=== PATIENT | male | born 1995 | race Caucasian/White ===

== ENCOUNTER → 2017-07-18 | Outpatient (CLI) | payer OTHER ==
--- NOTE | 2017-07-19 06:28 | PAP/PSG TECHNICIAN REPORT ---
[facility] [employer] Power [employer] Manager Polysomnogram Report Study name: None Report date: 07/19/2017 Study date: 07/18/2017 Referring Physician: DR. MAYNARD Name: CINDI BANDA Interpreting Physician: Mihai Maynard M.D. Date of : 1995 [employer] Power Plant Manager: Ritesh Valdivia RPSGT. Sex: Male Age: 22 StudyType: PSG Weight: 167.5 lbs 15 inches Height: 22 years, Height 5' 9" Neck Circum: BMI: 24.73 Medications: MELATONIN 5 MG, ZOLOFT 25 MG Patient History PATIENT HAS HISTORY OF INSOMNIA AND SNORING. HE GENERALLY FEELS TIRED DURING THE DAY BUT IS UNABLE TO TAKE NAPS. HE IS HERE TODAY FOR AN EVALUATION OF SAHARA. ESS = 1 RM 8 Parameters Monitored NPSG: E1-M2, E2-M1, Fp1-M2, Fp2-M1, F3-M2, F4-M2, F4-M1, C3-M2, C4-M2, C4-M1, O1-M2, O2-M2, O2-M1, T3-M2, T4-M1, P3-M2, P4-M1, CHIN1, CHIN2, HR, EKG, Legs, PFLOW, SNOR, FLOW, CFLOW, Tidal Volume, THOR, ABDO, SpO2, PLTH, CPRESS, ETCO2 Wave, ETCO2, pH Sleep Architecture Sleep Stages Time at Lights Off 10:28:29 PM STAGES Time (min.) TST (%) Time at Lights On 5:50:29 AM Wake 67.5 -- Total Recording Time (TRT) 442.50 min. N1 15.0 4 Total Sleep Period (TSP) 430.0 min. N2 182.0 49 Total Sleep Time (TST) 374.5min. N3 63.0 17 Awake Time 67.5 min. REM 114.5 31 Wake after Sleep Onset 55.5 min. Sleep Efficiency (SE) 85 % Sleep Onset Latency (DRE) 12.0 min. Number of Stage 1 Shifts None Awakenings 17 Stage Changes 62 Number of REM periods 5 REM 114.5 31 REM Latency 72.0 min. NREM 260.0 69 Body Position Analysis Supine Right Left Side Prone Vertical Total Sleep Time (min.) 112.3 57.0 230.0 287.01 0.0 0.0 Total Sleep Time (%) 23% 15% 61% 77 0% N/A% Total Sleep Time REM (min.) 12.3 0.0 102.2 None 0.0 0.0 Total Sleep Time NREM (min.) 75.2 57.0 127.8 None 0.0 0.0 Intermittent Wake (min.) 24.8 28.5 14.2 None 0.0 0.0 Total Sleep Period (%) 26% None None None None None Arousals Myoclonus (PLM) * Events Count Index Events Count Index Spontaneous 22 4 Events Awake (PLMW) 115 102.2 Respiratory 1 0.2 Events Asleep w/ Arousal (PLMA) 3 0.5 PLM 3 0 Events Asleep w/o Arousal (PLMS) 123 19.7 Snoring 2 0 Total Asleep 126 20.2 Total 28 4 Total 241 33 Respiratory Analysis * CA OA MA CH H RERA Total Count 2 0 0 0 1 0 3 Index 0.3 0.0 0.0 0 0.2 0 0.5 Mean Duration 13.4 0.0 0.0 0.00 19.5 0.0 15.5 Longest Duration 13.4 0.0 0.0 0.00 0.0 0.0 19.5 Respiratory Event Summary Total Supine ~Supine Right Left Prone REM NREM Apneas Count 2 0 2 0 2 N/A 2 0 Index 0.3 0 0 0.0 0.5 N/A 1 0 Hypopneas (4% Desat) Count 1 1 0 0 0 N/A 0 1 Index 0.2 0.7 0 0.0 0.0 N/A 0.0 0.2 Apneas & All Hypopneas Count 3 1 2 0 2 N/A 2 1 Index 0.5 1 0 0 1 N/A 1.0 0.2 Respiratory Events (Director Diversity+All Hyp+RERA) Count 3 1 2 0 2 N/A 2 1 Index 0.5 1 0 0.0 0.5 N/A 1.0 0.2 Respiratory Related Arousal Count 1 1 0 0 0 N/A 0 1 Index 0.2 1 0 0 0 N/A 0 0 Snoring Analysis Supine Right Left Prone REM NREM Total Snore duration 0.7 min Snores count 13 1 5 N/A 5 14 19 Snore mean duration 2.1 Sec Snores index 9 1 1 N/A 2.6 3.2 3.0 TST with snoring (%) 0.2% Desaturation Event Summary: Minimum %SpO2 Event Count Mean/Min/Max Duration(sec.) Desaturation Index % Time In Bed > 90 10 22.1 / 5.3 / 49.3 1.4 98.9 86 - 90 0 N/A 0.0 1.1 81 - 85 0 N/A 0.0 0.0 76 - 80 0 N/A 0.0 0.0 71 - 75 0 N/A 0.0 0.0 66 - 70 0 N/A 0.0 0.0 61 - 65 0 N/A 0.0 0.0 56 - 60 0 N/A 0.0 0.0 51 - 55 0 N/A 0.0 0.0 < 50 0 N/A 0.0 0.0 Total REM NREM Awake <50% 0.0 min. 0.0 min. 0.0 min. 0.0 min. 51 - 60% 0.0 min. 0.0 min. 0.0 min. 0.0 min. 61 - 70% 0.0 min. 0.0 min. 0.0 min. 0.0 min. 71 - 80% 0.0 min. 0.0 min. 0.0 min. 0.0 min. 81 - 90% 4.6 min. 1.2 min. 2.5 min. 0.9 min. 91 - 100% 414.9 min. 112.7 min. 253.1 min. 49.1 min. Average 93 93 93 93 Minimum SpO2 84 90 89 84 Desaturation Event Index 1.4 0.0 0.0 8.9 # Desat. Events below 89% 3 N/A N/A 3 Time(%) with Saturation below 89% 0.1 0.0 0.0 0.1 Time(min.) with Saturation below 89% 0.2 0.0 0.0 0.2 Time (mins) REM (mins) NREM (mins) % of TST SpO2 Below 90% N/A N/A NN/A 0.1 SpO2 Below 88% 0 0 0 0 Heart Rate Analysis Min (bpm) Max (bpm) Average (bpm) Awake 38 250 62 NREM 44 127 52 REM 45 76 56 Overall 44 127 53 Supplemental O2 Values Minimum O2 level: None Value Start Time End Time [employer] Manager Comments Mr. Hanks slept in the right, left and supine positions. No cardiac arrhythmia noted. Leg movements noted. No bruxism noted. Snoring was noted and scored as a 1 on a scale of 1 through 5. (0=no snoring, 5=snoring loud enough to be heard through a closed door or down the lamar way) Mr. Hanks awoke to use the restroom 1 time during the night. Mr. Hanks stated I did not sleep as well as I do when I am in my own bed. The final report will be interpreted and signed by a sleep physician. The completed physician report will then be placed in the patient medical record. Therapy (cm H2O) 0 TIB (min.) 442.0 TST (min.) 374.5 Sleep Onset (min.) 12.0 REM Onset From Sleep (min.) 72.0 Sleep Efficiency % 85 Wakefulness (%) 15 Wakefulness (min.) 67.5 NREM 1 (%) 4 NREM 1 (min.) 15.0 NREM 2 (%) 49 NREM 2 (min.) 182.0 NREM 3 (%) 17 NREM 3 (min.) 63.0 REM (%) 31 REM (min.) 114.5 # Arousals 28 Arousal Index 4 # Snore 19 Snore Index 3.0 AHI 0.5 AHI Supine 1 AHI Non-Supine 0 NREM AHI 0.2 REM AHI 1.0 RDI 0.5 # Obstructive Apnea 0 # Central Apnea 2 # Mixed Apnea 0 # Hypopneas 1 RERAs 0 Total Respiratory Events 3 Time Below SpO2 89% (min.) 0.0 Mean NREM SpO2 (%) 93 Mean REM SpO2 (%) 93 Mean Sleep SpO2 (%) 93 Min NREM SpO2 (%) 89 Min REM SpO2 (%) 90 Position Supine (min.) 112.3 Position Non-supine (min.) 287.0 LM Index Sleep 20.2 LM Index NREM 18.0 LM Index REM 25.2 Mean Heart Rate (bpm) 53 Min Heart Rate (bpm) 44
--- NOTE | 2017-07-20 16:40 | POLYSOMNOGRAPH REPORT ---
CLINICAL DATA: 22-year-old male with BMI of 24.73 referred by myself and his health educator, for evaluation of possible nocturnal hypoxemia and sleep apnea as a cause for polycythemia. He does have insomnia and snoring. He is tired during the day. His [place] sleepiness score is 1/24. SLEEP ARCHITECTURE: Total sleep period was 430 minutes. Total sleep time was 374.5 minutes divided between 260 minutes of non-REM sleep and 114.5 minutes of REM sleep. Sleep latency was 12 minutes. REM latency was 72 minutes. Sleep efficiency was 85%. Wake after sleep onset was 55.5 minutes. Sleep consisted of stage N1 4%, stage N2 49%, stage N3 17%, and REM 31%. AROUSAL DATA: 28 arousals were recorded for an index of 4 per hour. 22 were spontaneous. PLM DATA: Mildly elevated limb movements during sleep were noted. There were 126 limb movements during sleep noted for an index of 20.2 per hour with arousal index of 0.5 per hour. RESPIRATORY DATA: There was no evidence of clinically significant sleep apnea seen. The AHI was 0.5. There were 2 central apneic episodes. The longest apneic episode was 13.4 seconds. There was 1 hypopneic episode, 19.5 seconds in duration. OXIMETRY DATA: No hypoxemia was seen. Oxygen buddy was 89%. Mean saturation was 93%. Time below 88% was 0 minutes. EKG: Heart rates ranged from 44-127 beats per minute. No arrhythmias were noted. ELECTRICAL DESIGNER'S COMMENTS: The patient slept in the right, left, and supine position. Snoring was mild, rated 1 on a scale 1-5. IMPRESSION: No evidence of clinically significant sleep apnea/hypopnea or nocturnal hypoxemia to explain this patient's symptoms. RECOMMENDATIONS: The patient should continue to practice good sleep hygiene. [facility]
== END | disposition home or self-care (01) ==
LOC: C.NEUR 21:00
PROVIDERS: ATTEND Internal Medicine Pulmonary Disease
DX: G47.00 Insomnia, unspecified (principal)

== ENCOUNTER → 2017-07-30 | Outpatient (CLI) | payer OTHER ==
[~2017-07-30] VITALS: Ht 180.3 cm; Wt 71.0 kg
[2017-07-30 13:27] VITALS: BP 121/76; PULSE 71; Ht 180.3 cm; Wt 71.0 kg
== END | disposition home or self-care (01) ==
LOC: C.NEUR 13:17
PROVIDERS: ATTEND Internal Medicine Pulmonary Disease
DX: G47.00 Insomnia, unspecified (principal); R53.83 Other fatigue; D75.1 Secondary polycythemia